=== PATIENT | female | born 1970 | race Caucasian/White ===

== ENCOUNTER 2020-11-13 12:56 | Day surgery (SDC) | payer BC, OTHER ==
[2020-11-12 12:36] VITALS: BMI 39.9
[2020-11-13] MEDS ORDERED: PROPOFOL 20 ML ONE ×3 (13:52)
[2020-11-13 15:15] VITALS: PULSE 82; TEMP 97.8
[2020-11-13 17:20] VITALS: BP 131/75
== END 2020-11-13 15:45 | disposition home or self-care (01) ==
LOC: FASU-ENDO 12:56
PROVIDERS: ATTEND Internal Medicine Gastroenterology
PROC: 0DBN8ZX Excision of Sigmoid Colon, Via Natural or Artificial Opening Endoscopic, Diagnostic (ICD-10-PCS; principal; 2020-11-13 14:42)
DX: Z12.11 Encounter for screening for malignant neoplasm of colon (principal); K63.5 Polyp of colon; K64.1 Second degree hemorrhoids; K64.8 Other hemorrhoids
CPT/HCPCS: 84703; 88305-TC